=== PATIENT | female | born 1970 | race African-American/Black ===

== ENCOUNTER 2019-08-28 07:27 | Outpatient (CLI) | payer BC, OTHER ==
[2019-08-29 16:49] LABS: SARS-CoV-2 MS2 Positive; SARS-CoV-2 N Gene Negative; SARS-CoV-2 S Gene Negative; SARS-CoV-2 orf1ab Negative
== END 2019-08-28 07:28 | disposition home or self-care (01) ==
LOC: LABBT 07:27
PROVIDERS: ATTEND Specialist
DX: Z01.818 Encounter for other preprocedural examination (principal); Z11.59 Encounter for screening for other viral diseases; E04.2 Nontoxic multinodular goiter; R22.1 Localized swelling, mass and lump, neck
CPT/HCPCS: 85014; 87635; 93005; 93010; U0003

== ENCOUNTER 2019-09-01 06:37 | Observation (INO) | payer BC ==
[2019-08-28 13:21] VITALS: BMI 61.5
[2019-09-01] MEDS ORDERED: Lidocaine 1% w/Epinephrine 1:100K 20 ML VIAL ONE (09:20)
[2019-09-01] MEDS ORDERED: Ondansetron PF 4 MG/2 ML Vial ONE (09:35)
[2019-09-01] MEDS ORDERED: PHENYLEPHRINE-NS 100 MCG/ML 10 ML SYRINGE ONE (09:35)
[2019-09-01] MEDS ORDERED: Glycopyrrolate 0.2 MG/ML 5 ML SYRINGE ONE (09:35)
[2019-09-01] MEDS ORDERED: Dexamethasone 20 MG/5 ML VIAL ONE (09:35)
[2019-09-01] MEDS ORDERED: Succinylcholine Chloride 20 MG/ML 10 ml SYRINGE FS ONE (09:35)
[2019-09-01] MEDS ORDERED: Lidocaine 1% PF 5 ML VIAL ONE (09:35)
[2019-09-01] MEDS ORDERED: Rocuronium Bromide 10 MG/ML (10ML VIAL) ONE (09:35)
[2019-09-01] MEDS ORDERED: PROPOFOL 200 MG/20 ML VIAL ONE (09:35)
[2019-09-01] MEDS ORDERED: Fentanyl 100 MCG/2 ML VIAL ONE ×4 (10:03→14:01)
[2019-09-01] MEDS ORDERED: Midazolam HCl 2 mg/2 ml Vial ONE (10:03)
[2019-09-01] MEDS ORDERED: Bacitracin Zinc Ointment 30 gm TUBE ONE (12:08)
[2019-09-01] MEDS ORDERED: Promethazine HCl 25 MG/ML VIAL SLOW IVP PRN (13:06)
[2019-09-01] MEDS ORDERED: Promethazine HCl 25 MG/ML VIAL IM PRN (13:06)
[2019-09-01] MEDS ORDERED: Ondansetron HCl/PF 4 MG/2 ML Vial IVP PRN (13:06)
[2019-09-01 13:47] LABS: Calcium 8.8 mg/dL (7.8-10.44); Magnesium 1.8 mg/dL (1.6-2.6); Phosphorus 2.6 mg/dL (2.3-4.7)
[2019-09-01] MEDS ORDERED: Ondansetron ODT 4 MG TAB PO PRN (14:05)
[2019-09-01] MEDS ORDERED: Calcitriol 0.25 MCG CAP PO SCH (14:15)
[2019-09-01] MEDS: HYDROcodone/Acetaminophen 5/325 mg Tablet PO PRN ×2 (15:48→20:02)
[2019-09-01] MEDS: Calcium Carbonate 500 MG TAB PO SCH ×2 (15:48→20:02)
[2019-09-01] MEDS: Lactated Ringer's 1,000 ML IV SCH (15:49)
[2019-09-01] MEDS: Docusate 100 MG CAP PO SCH (20:02)
[2019-09-01] MEDS ORDERED: traMADol HCl 50 MG TAB PO PRN (22:10)
[2019-09-01] MEDS: traMADol HCl 50 MG TAB PO PRN (22:37)
[2019-09-02] MEDS: Lactated Ringer's 1,000 ML IV SCH (04:31)
[2019-09-02] MEDS: traMADol HCl 50 MG TAB PO PRN ×2 (04:54→11:40)
[2019-09-02] MEDS ORDERED: Calcitriol 0.25 MCG CAP PO SCH (09:00)
[2019-09-02] MEDS: HYDROcodone/Acetaminophen 5/325 mg Tablet PO PRN (09:29)
[2019-09-02] MEDS: Docusate 100 MG CAP PO SCH (09:31)
[2019-09-02] MEDS: Calcium Carbonate 500 MG TAB PO SCH (09:31)
[2019-09-02 11:38] VITALS: BP 129/75; TEMP 97.3
--- NOTE | 2019-09-03 12:49 | OP ---
DATE OF PROCEDURE: 09/01/2019 PREOPERATIVE DIAGNOSIS: Thyroid goiter. POSTOPERATIVE DIAGNOSES: 1. Thyroid goiter with tracheal deviation. 2. Compressive symptoms. 3. Significant adhesions. 4. Scarring of the thyroid bed. PROCEDURES PERFORMED: 1. Right thyroid lobectomy and isthmusectomy. 2. Revision thyroid surgery. 3. Lysis of adhesions. PERMIT: Procedures, benefits, and risks including those of bleeding, infection, injury from anesthesia, allergic reaction, damage to recurrent laryngeal nerves and blood vessels, necessitating revision or repair, and alternatives were reviewed with the patient and family who expressed understanding of the information. A consent form was signed and witnessed and a paper copy of the consent form is available for review in the paper chart. INDICATIONS: This is a 49-year-old female patient with 2 previous thyroid surgeries, presenting to clinic with a right anterior neck mass, compressive symptoms including shortness of breath, pain in the neck, feeling of a mass that is moderately tender to palpation. The patient has a history of 2 previous thyroid surgeries by 2 other otolaryngologists, described as removing the left side of the thyroid and then going back and removing the nodule that was closer to the center. The patient is brought now to the operating room for operative treatment. CONSULTING SERVICES PROJECT MANAGER: Jared Hayes MD. FINDINGS: Anterior fine midline neck scar over the previous thyroid surgery as well as the now significant thyroid mass. Significant scar tissue in the subcutaneous tissue. Strap muscles and platysma have significant scarring and the muscles are irregularly arranged after previous surgeries and previous closures. There was significant scarring around silk sutures as well as midline, approximating sutures, necessitating a significant time to identify the midline strap muscles and make a characterization to preserve anterior neck musculature and divide scarring. This additional scarring took approximately 45 to 60 minutes extra during the surgery to remove and lyse the scar tissue in order to provide an adequate exposure for the large thyroid goiter deep to this scar tissue and surrounding the thyroid. Other findings include a large right thyroid goiter and thyroid isthmus, extending over to the left side, deviating the trachea to the left. DESCRIPTION OF OPERATION: The patient was brought to the operating room and laid supine on operating the room table. After general endotracheal anesthesia was administered, the patient's neck position and body habitus prevented adequate exposure to the neck, so significant time positioning the patient was undertaken using a shoulder roll and also tape to position the body, so the patient's body habitus was not preventing an adequate exposure for sterile prep as well as for the surgical procedure. After the patient was positioned, the patient was then prepped and draped in the usual fashion and 1% lidocaine with 1:100,000 epinephrine was injected in the previous anterior neck incision scar and a 15 blade scalpel was used to make an incision in the previous neck scar and continued to the subcutaneous tissue where significant scar tissue was identified in the subcutaneous tissue around the platysma and around the strap muscles. For further information, please see the findings section of this report, but at this time, the platysma was then divided with Bovie cautery and significant scar tissue. The strap muscles were identified in the midline and significant time and care was taken to lyse adhesions and scar tissue and identify the midline structures and separate them superiorly to the thyroid notch as well as inferiorly to the sternal notch, identifying the thyroid tissue below. Also, the subplatysmal flaps were elevated to provide adequate exposure for the thyroid mass. After the strap muscles were identified and scar tissue divided using Bovie cautery and a combination of blunt dissection, bipolar cautery, and Bovie cautery, the [place] retractor was brought in place and with the assistance of Dr. Hayes, the right thyroid was mobilized and a medial and lateral tunnel was made and the thyroid was retracted inferiorly and medially and the superior thyroid vessels were identified and suture ligated, taking care to stay close to the thyroid capsule in order to avoid damage to the superior laryngeal nerve as well as to any vasculature supporting the superior parathyroid gland. The thyroid was then rolled medially and the lateral edge of the thyroid was dissected clear from the surrounding tissue. There was significant scar tissue in this area and significant adherence to the strap muscles likely from previous surgeries. The thyroid was then mobilized and the tubercle of Zuckerkandl was identified and blunt dissection with bipolar cautery and suture ligation of any vessels were used to mobilize the thyroid gland. At this point, the right recurrent laryngeal nerve was identified, using blunt dissection, tracing to the cricothyroid joint and then careful avoidance of this area as well as 2 parathyroid glands, which were identified. The thyroid was then continued to be removed with blunt dissection using a curved gently and bipolar cautery and suture ligation of any vessels until the ligament of [place] was identified, which was then divided using bipolar cautery and then carried towards the thyroid isthmus. At this point, any pyramidal lobe tissue was identified and removed along with the isthmus for what appeared to be a subtotal thyroidectomy given that there was a right thyroid lobe, a thyroid isthmus as well as some pyramidal lobe tissue, and care was taken to avoid the cricothyroid muscle and any tissue as to preserve the superior laryngeal nerve, and afterwards, the trachea was carefully inspected for any remaining thyroid tissue, which was not found, and any bleeding was controlled with bipolar cautery as well as suture ligation. The neck was then irrigated and suctioned and the recurrent laryngeal nerve was again identified and found to be intact in its course without any evidence of trauma. Also, the parathyroid glands appeared both superiorly and inferiorly. The glands appeared to be healthy on the right side. At this point, the thyroid was removed and sent for pathologic evaluation and the strap muscles were then approximated in the midline and then 3-0 Vicryl sutures were used to approximate the platysma and then a channel drain was placed and then anchored in place with 2-0 silk suture and then the subcutaneous deep sutures were then used to approximate the skin edges of the incision and then running continuous 4-0 Prolene was used to approximate the skin edges. The suction was then found to be holding it in place and the skin edges were everted and the neck was flat and the suction was holding without any sign of continuous bleeding. The patient was then turned over to Anesthesia for emergence. There were no complications. The patient was transferred to the PACU and then admitted for overnight observation and for monitoring of calcium and parathyroid hormone levels. Job ID: [id number]
== END 2019-09-02 11:59 | disposition home or self-care (01) ==
LOC: SDC 06:37 → SURG A 14:34
PROVIDERS: ADMIT Student in an Organized Health Care Education/Training Program; ATTEND Student in an Organized Health Care Education/Training Program
PROC: 0GTK0ZZ Resection of Thyroid Gland, Open Approach (ICD-10-PCS; principal; 2019-09-01)
DX: E04.2 Nontoxic multinodular goiter (principal); J39.8 Other specified diseases of upper respiratory tract; E89.0 Postprocedural hypothyroidism; I10 Essential (primary) hypertension; G89.29 Other chronic pain; M54.9 Dorsalgia, unspecified; E66.01 Morbid (severe) obesity due to excess calories; Z68.44 Body mass index [BMI] 60.0-69.9, adult; Z79.899 Other long term (current) drug therapy; Z88.1 Allergy status to other antibiotic agents; Z88.8 Allergy status to other drugs, medicaments and biological substances
CPT/HCPCS: 82310; 83735; 83970; 84100; 88307; 96360; 96361; G0378; J0690; J1100; J2001; J2250; J2405; J2704; J3010

== ENCOUNTER 2019-09-18 16:07 | Outpatient (CLI) | payer BC ==
--- NOTE | 2019-09-18 16:36 | RAD ---
EXAM: Chest 2 views: HISTORY: Shortness of breath COMPARISON: None. FINDINGS: There is a normal-sized cardiomediastinal silhouette. There is elevation the right hemidiaphragm. T here is no evidence of consolidation, mass, or pleural effusion. The bones are unremarkable. IMPRESSION: No evidence of acute cardiopulmonary disease
== END 2019-09-18 16:08 | disposition home or self-care (01) ==
LOC: SCSRAD 16:07
PROVIDERS: ATTEND Student in an Organized Health Care Education/Training Program
DX: E04.2 Nontoxic multinodular goiter (principal)
CPT/HCPCS: 36415; 71046; 80048; 84436; 84443; 85025

== ENCOUNTER 2021-09-21 18:47 | Outpatient (CLI) | payer OTHER | END 2021-09-21 18:48 | disposition home or self-care (01) | LOC: SCSRAD 18:47 | PROVIDERS: ATTEND Internal Medicine Rheumatology | DX: M47.818 Spondylosis without myelopathy or radiculopathy, sacral and sacrococcygeal region (principal); M54.50 Low back pain, unspecified | CPT/HCPCS: 72202 ==

== ENCOUNTER 2021-10-31 12:28 | Outpatient (CLI) | payer OTHER | END 2021-10-31 12:29 | disposition home or self-care (01) | LOC: SCSMRI 12:28 → TBSIIMAG 12:29 | PROVIDERS: ATTEND Internal Medicine Rheumatology | DX: M12.9 Arthropathy, unspecified (principal); M47.898 Other spondylosis, sacral and sacrococcygeal region | CPT/HCPCS: 72195 ==